=== PATIENT | female | born 1985 | race Caucasian/White ===

== ENCOUNTER 2018-01-29 08:47 | Day surgery (SDC) | payer SELFPAY ==
[2018-01-29] MEDS ORDERED: Ringers Lactate 1,000 ML IV ONE (09:18)
[2018-01-29 09:19] LABS: Specific Gravity 1.015 (1.005-1.030); Urine Appearance CLOUDY; Urine Bilirubin NEGATIVE (NEG); Urine Blood NEGATIVE (NEG); Urine Color YELLOW; Urine Glucose NEGATIVE (NEG); Urine Protein TRACE (NEG); Urine Specific Gravity 1.015 (1.005-1.030); Urine Urobilinogen 0.2 mg/dL (0.2-1.0)
[2018-01-29 09:20] LABS: Absolute Lymphocytes (CBC) 1.3 K/uL (0.7-4.9); Absolute Monocytes 0.4 K/uL (0.1-1.3); Absolute Neutrophil 3.5 K/uL (1.8-8.0); Eosinophils % 1.1 % (0-4.4); Hematocrit 39.6 % (36.0-45.0); Lymphocytes % 24.8 % (15.3-44.8); MCH 30.2 pg (27.0-35.0); MCV 88.6 fL (80-100); MPV 8.5 fL (7.6-11.3); Monocytes % 7.5 % (3.3-12.3); RBC Red Blood Cell Count 4.47 M/uL (3.86-4.86)
[2018-01-29 09:26] LABS: Protime INR 1.04
[2018-01-29 09:27] LABS: Urine Microscopic Reflex ORDER UMIC
[2018-01-29] MEDS ORDERED: FENTANYL CITR 100 MCG/2 ML ONE (09:27)
[2018-01-29] MEDS ORDERED: PROPOFOL 200 MG/20 ML VIAL IV ONE (09:27)
[2018-01-29] MEDS ORDERED: LIDOCAINE 2% MPF 5 ML VIAL ONE (09:27)
[2018-01-29] MEDS ORDERED: MIDAZOLAM HCL 2 MG/2 ML INJ ONE (09:27)
[2018-01-29 09:32] LABS: Potassium 3.8 mEq/L (3.6-5.0)
[2018-01-29] MEDS: GENTAMICIN 80 MG/100 ML BAG 80 MG/100 ML BAG IV ONE ×2 (09:35→09:40)
[2018-01-29 09:36] LABS: Phosphorus 2.4 mg/dL (2.5-4.3); Uric Acid 5.6 mg/dL (2.6-8.0)
[2018-01-29 09:37] LABS: Urine Bacteria 20-50 /HPF (<20); Urine Culture Reflex Order NOT NEEDED; Urine RBC <5 /HPF (NONE SEEN)
[2018-01-29] MEDS ORDERED: ONDANSETRON HCL 40 MG/20 ML VIAL ONE (10:00)
[2018-01-29] MEDS ORDERED: KETOROLAC 30 MG/ML INJ ONE (10:16)
[2018-01-29 11:11] VITALS: BP 116/83; TEMP 97.9; O2SAT 100
== END 2018-01-29 11:40 | disposition home or self-care (01) ==
LOC: OR 08:47
PROVIDERS: ATTEND Urology
PROC: 0TF4XZZ Fragmentation in Left Kidney Pelvis, External Approach (ICD-10-PCS; principal; 2018-01-29 10:15)
DX: N20.0 Calculus of kidney (principal); N30.20 Other chronic cystitis without hematuria; Z88.3 Allergy status to other anti-infective agents; Z82.49 Family history of ischemic heart disease and other diseases of the circulatory system; Z80.8 Family history of malignant neoplasm of other organs or systems
CPT/HCPCS: 36415; 50590; 80048; 81003; 81015; 81025; 84100; 84550; 85025; 85610; 85730; 87077; 87086; 87088; 87186; J1580; J2250; J2405; J3010